=== PATIENT | male | born 1965 | race Two or more races ===

== ENCOUNTER 2021-08-19 02:59 | Emergency (ER) | payer SELFPAY ==
[~2021-08-19] VITALS: Ht 165.1 cm; Wt 55.0 kg
[2021-08-19 04:50] VITALS: BP 125/76
== END 2021-08-19 05:39 | disposition home or self-care (01) ==
LOC: ER 02:59
DX: T51.0X1A Toxic effect of ethanol, accidental (unintentional), initial encounter (principal); X58.XXXA Exposure to other specified factors, initial encounter
CPT/HCPCS: 99283